=== PATIENT | female | born 1980 | race Caucasian/White ===

== ENCOUNTER → 2018-11-19 13:13 | Outpatient (CLI) | payer BC, OTHER, SELFPAY ==
--- NOTE | 2018-11-19 13:41 | DI.CT.S_ITS ---
PROCEDURE: CT SOFT TISSUE NECK W CON INDICATIONS: Nontoxic multinodular goiter TECHNIQUE: After the administration of intravenous contrast, 3.0 mm axial sections acquired from the sella to the aortic arch. Additional oblique axial 3.0 mm sections acquired through the pharynx. 3 mm thick coronal and sagittal reformats were generated. For radiation dose reduction, the following was used: automated exposure control. COMPARISON: None. FINDINGS: Image quality: Excellent. Lymph nodes: No enlarged lymph nodes seen throughout the neck. Vessels: Visualized vasculature appears patent. Neck spaces: The oropharynx, nasopharynx, and pharynx demonstrate no mucosal lesions. The vocal cords, false vocal cords, pyriform sinuses, epiglottis, vallecula, and tongue base all appear normal. Extramucosal spaces appear unremarkable. Glands: The parotid and submandibular glands appear normal. Thyroid gland is enlarged and demonstrates numerous low-density lesions. Miscellaneous: Visualized brain and orbits appear normal. Lung apices appear clear. Superficial soft tissues appear normal. Bones: No suspicious bony lesions. Visualized sinuses and mastoids appear unremarkable. IMPRESSION: The thyroid gland is enlarged and demonstrates numerous low-density lesions, which are consistent with given clinical history of multinodular goiter. No enlarged lymph nodes are seen. Dictated by: Shai Couch M.D. on 11/19/2018 at 15:42 Approved by: Shai Couch M.D. on 11/19/2018 at 15:47
== END ==
PROVIDERS: PCP Family Medicine; Visit Provider Otolaryngology
DX: E04.2 Nontoxic multinodular goiter (principal)
CPT/HCPCS: 70491; Q9967

== ENCOUNTER → 2019-04-20 12:22 | Outpatient (CLI) | payer BC, OTHER, SELFPAY ==
[2019-04-20 13:48] LABS: Follicle Stimulating Hormone 6.55 mIU/mL; Luteinizing Hormone 3.07 mIU/mL
[2019-04-25 09:03] LABS: Estrogen 219.7 pg/mL
== END ==
PROVIDERS: PCP Family Medicine; Referring Provider Family Medicine; Visit Provider Family Medicine
DX: R63.5 Abnormal weight gain (principal); E03.9 Hypothyroidism, unspecified
CPT/HCPCS: 36415; 82672; 83001; 83002

== ENCOUNTER → 2019-11-25 16:58 | Outpatient (CLI) | payer BC, OTHER, SELFPAY ==
[2019-11-25 18:56] LABS: Free T3, Triiodothyronine Free 4.85 pg/mL (2.77-5.27); Free T4, Direct Thyroxine 2.13 ng/dL (0.78-2.19)
[2019-11-25 19:57] LABS: Thyroid Stimulating Hormone < 0.015 uIU/mL (0.47-4.68)
== END ==
PROVIDERS: PCP Family Medicine; Referring Provider Family Medicine; Visit Provider Family Medicine
DX: E03.9 Hypothyroidism, unspecified (principal); Z90.09 Acquired absence of other part of head and neck
CPT/HCPCS: 36415; 84439; 84443; 84481

== ENCOUNTER → 2021-04-20 17:16 | Outpatient (CLI) | payer BC, OTHER, SELFPAY ==
--- NOTE | 2021-04-20 | DI.MG.S_ITS ---
BILATERAL DIGITAL SCREENING MAMMOGRAM 3D/2D WITH CAD: 04/20/2021 CLINICAL: Routine screening. Baseline exam. No prior exams were available for comparison. The tissue of both breasts is heterogeneously dense. This may lower the sensitivity of mammography. Current study was also evaluated with a Computer Aided Detection (CAD) system. There is an oval focal asymmetry in the left breast at 6 o'clock posterior depth. No other significant masses, calcifications, or other findings are seen in either breast. IMPRESSION: INCOMPLETE: NEEDS ADDITIONAL IMAGING EVALUATION The oval focal asymmetry in the left breast resembles a cyst or a lymph node and is indeterminate. Additional views with possible ultrasound are recommended. This exam was interpreted at Station ID: [id number]. NOTE: For mammograms, a report in lay terms will be sent to the patient. Approximately 15% of breast malignancies will not be visualized mammographically. In the management of a palpable breast mass, a negative mammogram must not discourage biopsy of a clinically suspicious lesion. Electronically Signed By: Delonte gooden/shanae:04/21/2021 08:51:22 copy to: FELICITA ANDRADE letter sent: Additional Imaging Needed ACR BI-RADS Category 0: Incomplete [id number]
== END ==
PROVIDERS: PCP Family Medicine; Referring Provider Plastic Surgery; Visit Provider Plastic Surgery
DX: Z12.31 Encounter for screening mammogram for malignant neoplasm of breast (principal)
CPT/HCPCS: 77063; 77067